=== PATIENT | male | born 1995 | race African-American/Black ===

== ENCOUNTER 2020-09-09 08:42 | Outpatient (CLI) | payer OTHER ==
--- NOTE | 2020-09-09 09:22 | ULT ---
Ultrasound of [facility] upper quadrant: 09/09/2020 COMPARISON:None available HISTORY:Abnormal liver enzymes TECHNIQUE: Multiplanar grayscale sonographic imaging of [facility] upper quadrant provided FINDINGS:Imaged portions of the pancreas appear unremarkable. The hepatic parenchyma is echogenic and heterogeneous, suggesting hepatocellular disease, such as hepatic steatosis. No gallbladder wall thickening or pericholecystic fluid. No gallstones are noted. The common bile duct measures 5-6 mm, within normal limits. Right kidney measures 10.4 cm in craniocaudal dimension and demonstrates no stone, hydronephrosis, or mass lesion. The global human resources director reports a negative Pool's sign. The tail of the pancreas is obscured by bowel gas. IMPRESSION:No sonographic evidence of cholelithiasis, cholecystitis, or biliary dilatation.
== END 2020-09-09 08:43 | disposition home or self-care (01) ==
LOC: BICULT 08:42
PROVIDERS: ATTEND Nurse Practitioner Family
DX: R74.8 Abnormal levels of other serum enzymes (principal)
CPT/HCPCS: 76705